=== PATIENT | male | born 1965 | race Caucasian/White ===

== ENCOUNTER 2020-10-24 06:50 | Emergency (ER) | payer SELFPAY ==
[~2020-10-24] VITALS: Ht 170.2 cm; Wt 75.0 kg
[~2020-10-24 06:50] MED LIST: CIME800T PO
[2020-10-24] MEDS ORDERED: KETOROLAC 60MG/2ML VIAL IM ONE (08:00)
[2020-10-24] MEDS ORDERED: DIAZEPAM 5 MG TABLET PO ONE (08:45)
[2020-10-24] MEDS ORDERED: METH-773 MT (08:46)
[2020-10-24] MEDS ORDERED: IBUP-2029 MT (08:46)
[2020-10-24 09:17] VITALS: BP 120/77
== END 2020-10-24 09:23 | disposition home or self-care (01) ==
LOC: ER 07:50
DX: M54.5 Low back pain (principal); M25.552 Pain in left hip; Z91.81 History of falling; R03.0 Elevated blood-pressure reading, without diagnosis of hypertension; F12.90 Cannabis use, unspecified, uncomplicated; Z87.828 Personal history of other (healed) physical injury and trauma
CPT/HCPCS: 72100; 72170; 96372; 99284; J1885; Z7610